=== PATIENT | female | born 1980 | race African-American/Black ===

== ENCOUNTER 2021-04-01 09:02 | Inpatient (IN) ==
[2021-04-01 10:18] LABS: Bacteria,Urine Few /HPF (Few); Bilirubin,Urine Negative (Negative); Blood, Urine Negative (Negative); Glucose,Urine (UA) Negative (Negative); Ketones,Urine 80 mg/dL (Negative); Mucus,Urine Many /LPF (Occasional); Nitrite,Urine Negative (Negative); Protein,Urine 100 MG/DL; RBC,Urine 13 /HPF (0-4); Squamous Epithelial Cell,Urine Many /HPF (0-10); Urine Appearance CLOUDY (Clear); Urine Color Amber (Yellow); Urine Specific Gravity 1.026 (1.001-1.035)
[2021-04-01 11:05] LABS: Protein/Creatinine Ratio,Urine 0.7 RATIO
[2021-04-01 11:46] LABS: Basophils % 0.2 % (0.0-0.8); Eosinophils % 0.3 % (0.00-10.9); Hematocrit 32.4 VOL% (35.7-47.0); Hemoglobin 10.6 GM/DL (12.0-16.0); Immature Granulocytes % 0.7 %; Immature Granulocytes Absolute 0.04 #; Lymphocytes % 16.4 % (21.3-54.2); Mean Corpuscular HGB Conc 32.7 GM/DL (32-36); Mean Corpuscular Volume 84.8 FL (87-102); Mean Platelet Volume 11.2 FL (9.6-12.0); Monocytes % 8.8 % (1.7-12.7); Neutrophils % 73.6 % (38.7-73.9); Platelet Count 190 T/CUMM (130-400); Red Blood Count 3.82 MC/CUMM (3.8-5.5); Red Cell Distribution Width 13.6 % (9.3-17.3); White Blood Count 5.8 T/CUMM (4-12)
[2021-04-01 12:01] LABS: INR 0.9; PT Patient Result 10.2 SECS (10.5-12.0); Partial Thromboplastin Time 29.6 SECS (23.9-33.8)
[2021-04-01 12:06] LABS: Albumin 2.3 G/DL (3.4-5.0); Bilirubin,Direct 0.19 MG/DL (0.0-0.20); Bilirubin,Total 0.4 MG/DL (0.20-1.00); Calcium 8.8 MG/DL (8.5-10.1); Osmolality,Calculated 272.8 MOS/KG (273-304); Potassium 3.9 MMOL/L (3.5-5.1); Total Protein 6.7 G/DL (6.4-8.2); Uric Acid 7.9 MG/DL (2.6-6.0)
[2021-04-01] MEDS: LACTATED RINGERS 1,000 ML IV SCH ×2 (14:56→18:16)
[2021-04-01] MEDS ORDERED: FAMOTIDINE 20 MG/2 ML VIAL IV ONE (16:37)
[2021-04-01] MEDS ORDERED: CITRIC ACID/SODIUM CITRATE 30 ML UDCUP PO ONE (16:37)
[2021-04-01] MEDS ORDERED: ceFAZolin 2,000 MG/50 ML DUPLEX IV ONE (16:37)
[2021-04-01] MEDS ORDERED: TRANEXAMIC ACID 1,000 MG/10 ML VIAL ONE (17:34)
[2021-04-01] MEDS ORDERED: OXYTOCIN/LR 20 UNIT/1,000 ML BAG IV ONE ×4 (17:34→20:10)
[2021-04-01] MEDS ORDERED: miSOPROStoL 200 MCG TABLET ONE (17:34)
[2021-04-01] MEDS ORDERED: CARBOPROST TROMETHAMINE 250 MCG/ML AMP IM ONE (17:35)
[2021-04-01] MEDS ORDERED: SODIUM CHLORIDE 0.9% 100 ML IV ONE (17:35)
[2021-04-01] MEDS ORDERED: BUPIVACAINE SPINAL 0.75% 2 ML AMP SPINAL ONE (18:09)
[2021-04-01] MEDS ORDERED: ONDANSETRON 4 MG/2 ML VIAL ONE ×2 (18:09→19:21)
[2021-04-01] MEDS ORDERED: propofoL 200 MG/20 ML VIAL IV ONE (19:21)
[2021-04-01] MEDS ORDERED: SUCCINYLCHOLINE 200 MG/10 ML VIAL ONE (19:21)
[2021-04-01] MEDS ORDERED: SEVOFLURANE 1 UNIT/15 MINUTE INH ONE (19:24)
[2021-04-01] MEDS ORDERED: ACETAMINOPHEN INJ 1,000 MG/100 ML VIAL IV ONE (19:24)
[2021-04-01] MEDS ORDERED: fentaNYL 100 MCG/2 ML VIAL ONE (19:25)
[2021-04-01 19:34] LABS: Cord Venous Blood HCO3 18.2 MMOL/L; Cord Venous Blood PCO2 47.9 MMHG; Cord Venous Blood PO2 18.1
[2021-04-01] MEDS ORDERED: HYDROmorphone 2 MG/1 ML VIAL IV ONE (19:56)
[2021-04-01] MEDS ORDERED: HYDROmorphone 2 MG/1 ML VIAL ONE (20:05)
[2021-04-01] MEDS ORDERED: MAGNESIUM HYDROXIDE SUSP 30 ML UDCUP PO PRN (20:10)
[2021-04-01] MEDS ORDERED: SIMETHICONE CHEW 80 MG TABLET PO PRN (20:10)
[2021-04-01] MEDS ORDERED: RHO(D) IMMUNE GLOBULIN 300 MCG SYRINGE IM ONE (20:10)
[2021-04-01] MEDS ORDERED: ONDANSETRON 4 MG/2 ML VIAL IV PRN (20:10)
[2021-04-01] MEDS ORDERED: ACETAMINOPHEN 325 MG TABLET PO PRN (20:10)
[2021-04-01] MEDS ORDERED: IBUPROFEN 800 MG TABLET PO PRN (20:10)
[2021-04-01 20:13] LABS: Bilirubin,Urine Negative (Negative); Blood, Urine Negative (Negative); Glucose,Urine (UA) Negative (Negative); Ketones,Urine 80 mg/dL (Negative); Mucus,Urine Few /LPF (Occasional); Nitrite,Urine Negative (Negative); Protein,Urine 100 MG/DL; RBC,Urine 2 /HPF (0-4); Squamous Epithelial Cell,Urine Occasional /HPF (0-10); Urine Appearance CLEAR (Clear); Urine Color Amber (Yellow); Urine Specific Gravity 1.017 (1.001-1.035)
[2021-04-01] MEDS ORDERED: HYDROmorphone 2 MG/1 ML VIAL IV SCH (21:00)
[2021-04-01] MEDS ORDERED: DEXTROSE 50% 25 GM/50 ML VIAL IV PRN (22:32)
[2021-04-01] MEDS ORDERED: GLUCAGON 1 MG VIAL IM PRN (22:32)
[2021-04-01] MEDS: DOCUSATE SODIUM 100 MG CAPSULE PO SCH (23:25)
[2021-04-01] MEDS: oxyCODONE/ACETAMINOPHEN 5-325 MG TABLET PO PRN (23:25)
[2021-04-01] MEDS: INSULIN REGULAR 100 UNIT/ML SUBCUT SCH (23:25)
[2021-04-02] MEDS: KETOROLAC 30 MG/1 ML VIAL IV SCH ×3 (02:28→14:45)
[2021-04-02] MEDS: ACETAMINOPHEN 500 MG TABLET PO SCH ×3 (02:30→14:44)
[2021-04-02] MEDS: LACTATED RINGERS 1,000 ML IV SCH ×2 (02:30→02:51)
[2021-04-02] MEDS: ENOXAPARIN 40 MG/0.4 ML SYRINGE SUBCUT SCH (04:13)
[2021-04-02] MEDS: INSULIN REGULAR 100 UNIT/ML SUBCUT SCH ×4 (04:25→18:23)
[2021-04-02] MEDS ORDERED: DEXTROSE 50% 25 GM/50 ML VIAL IV PRN (04:28)
[2021-04-02 06:24] LABS: Basophils % 0.3 % (0.0-0.8); Eosinophils % 0.1 % (0.00-10.9); Hematocrit 29.4 VOL% (35.7-47.0); Hemoglobin 9.5 GM/DL (12.0-16.0); Immature Granulocytes Absolute 0.08 #; Lymphocytes # 1.4 10*3/uL (1.4-4.0); Lymphocytes % 17.3 % (21.3-54.2); Mean Corpuscular HGB Conc 32.3 GM/DL (32-36); Mean Corpuscular Volume 85.5 FL (87-102); Mean Platelet Volume 11.4 FL (9.6-12.0); Monocytes % 7.6 % (1.7-12.7); NRBC # 0.02 10*3/uL; Neutrophils % 73.7 % (38.7-73.9); Platelet Count 170 T/CUMM (130-400); Red Blood Count 3.44 MC/CUMM (3.8-5.5); Red Cell Distribution Width 13.8 % (9.3-17.3)
[2021-04-02] MEDS: LEVOTHYROXINE 50 MCG TABLET PO SCH (08:34)
[2021-04-02] MEDS: metFORMIN 500 MG TABLET PO SCH ×2 (08:36→18:20)
[2021-04-02] MEDS: DOCUSATE SODIUM 100 MG CAPSULE PO SCH ×2 (08:36→23:33)
[2021-04-02] MEDS ORDERED: MULTIVITAMIN (PRENATAL) TABLET PO SCH (09:00)
[2021-04-02] MEDS: oxyCODONE/ACETAMINOPHEN 5-325 MG TABLET PO PRN (23:34)
[2021-04-03] MEDS: INSULIN REGULAR 100 UNIT/ML SUBCUT SCH (02:00)
[2021-04-03] MEDS: ENOXAPARIN 40 MG/0.4 ML SYRINGE SUBCUT SCH (03:55)
[2021-04-03] MEDS: oxyCODONE/ACETAMINOPHEN 5-325 MG TABLET PO PRN (03:56)
[2021-04-03] MEDS: LEVOTHYROXINE 50 MCG TABLET PO SCH (10:11)
[2021-04-03] MEDS: metFORMIN 500 MG TABLET PO SCH (10:11)
== END 2021-04-03 18:27 | disposition home or self-care (01) | DRG 786 ==
LOC: N.LDOUT 09:02 → N.LD 09:03
PROVIDERS: ADMIT Obstetrics & Gynecology; ATTEND Obstetrics & Gynecology
PROC: LDCSECT (ICD-10-PCS; 2021-04-01 17:00)